=== PATIENT | male | born 1955 | race Native Hawaiian/Other Pacific Islander ===

== ENCOUNTER 2016-11-02 20:19 | Emergency (ER) | payer BC, OTHER ==
[~2016-11-02] VITALS: Ht 167.6 cm; Wt 77.1 kg
[~2016-11-02 20:19] MED LIST: ALLO100T56 PO; AMLO2.5T PO; ASPI81TA31 PO; ATOR20TA PO; GABA-534 PO; HYDR-4076 PO; METO25TA6 PO; OMEG500C3 PO
[2016-11-02] MEDS ORDERED: HYDROCODONE/APAP 5-325MG TABLET PO ONE (21:15)
[2016-11-02] MEDS ORDERED: predniSONE 20 MG TABLET PO ONE (21:15)
[2016-11-02 21:25] VITALS: BP 135/89
--- NOTE | 2016-11-02 21:26 | NUR ---
Patient discharged to home in stable conditon. Written and verbal after care instructions given. Patient verbalizes understanding of instructions.
[2016-11-02] MEDS ORDERED: HYDROCODONE/APAP 5-325MG TABLET ONE (21:31)
[2016-11-02] MEDS ORDERED: predniSONE 20 MG TABLET ONE (21:32)
== END 2016-11-02 21:26 | disposition home or self-care (01) ==
LOC: ER 20:20
DX: M10.9 Gout, unspecified (principal); I10 Essential (primary) hypertension; E78.5 Hyperlipidemia, unspecified; Z95.1 Presence of aortocoronary bypass graft; Z79.82 Long term (current) use of aspirin
CPT/HCPCS: A4663; J7512

== ENCOUNTER 2017-01-02 17:14 | Emergency (ER) | payer BC, OTHER ==
[~2017-01-02] VITALS: Ht 167.6 cm; Wt 77.1 kg
--- NOTE | 2017-01-02 19:59 | NUR ---
PHARMACY NOTE ; DR HARRY VERBALLY STATED TO CHANGE THE CONCENTRATION OF THE LIDOCAINE FROM 1% TO 2%.
--- NOTE | 2017-01-02 20:12 | NUR ---
MSE COMPLETED, PT D/C'D HOME, ACI/RX X2 GIVWEN. PT STAED FELT LESS PAIN TO KNEE. PT AMBULATED W/O DIFF/TOOK ALL BELONGINGS.
[2017-01-02 20:14] VITALS: BP 112/82
== END 2017-01-02 20:14 | disposition home or self-care (01) ==
LOC: ER 17:18
DX: M10.9 Gout, unspecified (principal); M25.561 Pain in right knee; I10 Essential (primary) hypertension; Z95.1 Presence of aortocoronary bypass graft; Z79.82 Long term (current) use of aspirin; E78.5 Hyperlipidemia, unspecified
CPT/HCPCS: 20610; 73564; 99284; A4663; J3490; J7512

== ENCOUNTER 2017-03-17 17:41 | Inpatient (IN) | payer BC, OTHER ==
[~2017-03-17] VITALS: Ht 167.6 cm; Wt 79.4 kg
[~2017-03-17 17:41] MED LIST changes: -GABA-534 PO
[2017-03-17] MEDS ORDERED: hydrALAZINE HCL 20 MG/1 ML VIAL IV ONE ×2 (18:15→20:45)
[2017-03-17] MEDS ORDERED: hydrALAZINE HCL 20 MG/1 ML VIAL ONE ×2 (18:25→20:55)
[2017-03-17 19:16] LABS: BASOPHILS # (AUTO) 0.1 K/uL (0.0-8.0); BASOPHILS % (AUTO) 0.8 % (0.0-2.0); EOSINOPHILS # (AUTO) 0.5 K/uL (0.0-0.7); EOSINOPHILS % (AUTO) 6.2 % (0.0-7.0); HEMATOCRIT 50.5 % (40-50); HEMOGLOBIN 16.7 G/DL (14.0-18.0); LYMPHOCYTES # (AUTO) 2.1 K/UL (0.8-4.8); LYMPHOCYTES % (AUTO) 24.9 % (20.5-51.5); MEAN CORPUSCULAR HEMOGLOBIN 28.9 UUG (27.0-31.0); MEAN CORPUSCULAR HGB CONC 33 g/dL (32.0-37.0); MEAN CORPUSCULAR VOLUME 87.3 FL (82.0-92.0); MONOCYTES # (AUTO) 0.6 K/UL (0.1-1.30); MONOCYTES % (AUTO) 6.6 % (0.0-11.0); NEUTROPHILS # (AUTO) 5.2 K/UL (1.8-8.9); NEUTROPHILS % (AUTO) 61.5 % (38.5-71.5); PLATELET COUNT (AUTO) 216 K/UL (150-450); RED BLOOD CELL COUNT(AUTO) 5.79 MIL/UL (4.7-6.1); WHITE BLOOD COUNT (AUTO) 8.4 K/UL (4.0-11.2)
[2017-03-17 19:24] LABS: CREATININE 1.4 mg/dL (0.6-1.3); POTASSIUM 3.7 mmol/L (3.5-5.1)
[2017-03-17 19:31] LABS: BILIRUBIN,TOTAL 0.7 mg/dL (0.2-1.0); TOTAL PROTEIN, SERUM 7.3 g/dL (6.4-8.2)
[2017-03-17 19:36] LABS: *BILIRUBIN,URIN NEGATIVE (NEGATIVE); *BLOOD, URINE Trace-intact (NEGATIVE); *CLARITY,URINE CLEAR (CLEAR); *COLOR,URINE YELLOW (YELLOW); *KETONES,URINE NEGATIVE (NEGATIVE); *PROTEIN,URINE 2+ (NEGATIVE); *UROBILINOGEN,URINE 0.2 E.U./dl (NORMAL); LEUKOCYTE ESTERASE ,URINE NEGATIVE (NEGATIVE); NITRITE, URINE NEGATIVE (NEGATIVE); PH,URINE 6.5 (5.0-8.0); UGLUCOSE NEGATIVE (NEGATIVE)
[2017-03-17 19:41] LABS: BACTERIA,URINE NONE SEEN /HPF (NONE SEEN); RBC,URINE 0-3 /HPF (0-3); SQUAMOUS EPITHELIAL CELL,UR NONE SEEN /HPF (NONE SEEN); WBC,URINE 0-3 /HPF (0-3)
[2017-03-17] MEDS ORDERED: LABETALOL HCL 100 MG/20 ML VIAL IV ONE (21:18)
[2017-03-17] MEDS ORDERED: LABETALOL HCL 100 MG/20 ML VIAL ONE (21:39)
[2017-03-17] MEDS ORDERED: IV NS 1000 ML 1,000 ML IV PRN (22:09)
--- NOTE | 2017-03-17 22:12 | NUR ---
Pt. admitted to TELE, under care of Dr. Sage Belongs List completed
[2017-03-17] MEDS ORDERED: hydrALAZINE HCL 25 MG TABLET PO SCH (22:15)
[2017-03-17] MEDS ORDERED: HYDROCODONE/APAP 5-325MG TABLET PO PRN (22:15)
[2017-03-17] MEDS ORDERED: METOPROLOL TARTRATE 25 MG TABLET PO SCH (22:15)
[2017-03-17] MEDS ORDERED: Z GUARD REMEDY PASTE 57 GM TUBE TOP PRN (22:15)
[2017-03-17] MEDS ORDERED: ACETAMINOPHEN 325 MG TABLET PO PRN (22:15)
[2017-03-17] MEDS ORDERED: ZOLPIDEM 5 MG TABLET PO PRN (22:15)
[2017-03-17] MEDS ORDERED: MAGNESIUM HYDROXIDE 30 ML LIQUID UDC PO PRN (22:15)
[2017-03-17] MEDS ORDERED: CLONIDINE HCL 0.1 MG TABLET PO PRN (22:15)
[2017-03-17] MEDS ORDERED: ONDANSETRON 4 MG/2 ML VIAL IV PRN (22:15)
--- NOTE | 2017-03-17 22:20 | NUR ---
NSG: PT RECEIVED A/O X 4, FR ER VIA IWTRNEY WITH DX OF HYPERTENSION. V/S STABLE, BP 158/92. AMBULATORY. TELE, SR. DENIES CP, SOB, OR ANY DISCOMFORT. CONT TO MONITOR.
[2017-03-17 22:39] VITALS: BP 158/92
--- NOTE | 2017-03-17 22:48 | NUR ---
nsg: hydralazine po not, received hydralazine iv at 2042
[2017-03-17] MEDS ORDERED: METOPROLOL TARTRATE 25 MG TABLET ONE (23:08)
[2017-03-18] MEDS ORDERED: ZOLPIDEM 5 MG TABLET ONE (00:15)
[2017-03-18 00:18] VITALS: BP 143/86
[2017-03-18 04:26] LABS: BASOPHILS # (AUTO) 0.1 K/uL (0.0-8.0); BASOPHILS % (AUTO) 0.9 % (0.0-2.0); EOSINOPHILS # (AUTO) 0.4 K/uL (0.0-0.7); EOSINOPHILS % (AUTO) 5.1 % (0.0-7.0); HEMATOCRIT 48.8 % (40-50); HEMOGLOBIN 16.2 G/DL (14.0-18.0); LYMPHOCYTES # (AUTO) 1.9 K/UL (0.8-4.8); LYMPHOCYTES % (AUTO) 24.3 % (20.5-51.5); MEAN CORPUSCULAR HEMOGLOBIN 29.2 UUG (27.0-31.0); MEAN CORPUSCULAR HGB CONC 33 g/dL (32.0-37.0); MEAN CORPUSCULAR VOLUME 87.7 FL (82.0-92.0); MONOCYTES # (AUTO) 0.6 K/UL (0.1-1.30); MONOCYTES % (AUTO) 7.9 % (0.0-11.0); NEUTROPHILS % (AUTO) 61.8 % (38.5-71.5); PLATELET COUNT (AUTO) 225 K/UL (150-450); RED BLOOD CELL COUNT(AUTO) 5.57 MIL/UL (4.7-6.1)
[2017-03-18 04:39] LABS: CREATININE 1.3 mg/dL (0.6-1.3); MAGNESIUM 2.1 mg/dL (1.8-2.4); PHOSPHOROUS 3.8 mg/dL (2.5-4.9); POTASSIUM 3.4 mmol/L (3.5-5.1)
[2017-03-18 04:47] VITALS: BP 115/69
--- NOTE | 2017-03-18 06:00 | NUR ---
NSG: NO CHANGE IN CONDITION. V/S STABLE. TELE, SR WITH OCCASIONAL PVC'S. ON CONT IVF. CONT WITH TREATMENT PLAN.
--- NOTE | 2017-03-18 07:30 | NUR ---
SR ON MONITOR, DENIES SOB OR CHEST PAIN, SBP UNDER CONTROL
[2017-03-18] MEDS ORDERED: OMEGA-3 FATTY ACIDS/FISH OIL CAPSULE PO SCH (09:00)
[2017-03-18] MEDS ORDERED: METOPROLOL TARTRATE 25 MG TABLET PO SCH ×2 (09:00)
[2017-03-18] MEDS ORDERED: ALLOPURINOL 100 MG TABLET PO SCH (09:00)
[2017-03-18] MEDS ORDERED: ASPIRIN 81 MG TAB.CHEW PO SCH (09:00)
[2017-03-18] MEDS ORDERED: hydrALAZINE HCL 25 MG TABLET PO SCH ×2 (09:00)
[2017-03-18] MEDS ORDERED: Medication Not On Formulary EA (Omega-3 Fatty Acids (Fish Oil) 500 MG) PO SCH (09:00)
[2017-03-18] MEDS ORDERED: AMLODIPINE 2.5 MG TABLET PO SCH (09:00)
--- NOTE | 2017-03-18 09:30 | NUR ---
SEEN BY DR ZHAO WITH DC ORDER BRANCH LIBRARY CLERK MADE AWARE
[2017-03-18 11:06] VITALS: BP 101/67
--- NOTE | 2017-03-18 11:23 | NUR ---
DISCHARGE HOME STABLE WITH PRIVATE CAR. MEDICATION AND FOLLOW-UP INSTRUCTION GIVEN. REFUSED TO SEE PHARMACIST FOR FURTHER INSTRUCTION. PATIENT IN A HURRY TO GO TO AIRPORT
[2017-03-18] MEDS ORDERED: ATORVASTATIN 20 MG TABLET PO SCH (21:00)
== END 2017-03-18 11:24 | disposition home or self-care (01) | DRG 684 ==
LOC: ER 17:41 → TELE 22:00
PROVIDERS: ADMIT Internal Medicine; ATTEND Internal Medicine
DX: N17.0 Acute kidney failure with tubular necrosis (principal); E78.5 Hyperlipidemia, unspecified; I10 Essential (primary) hypertension; I25.10 Atherosclerotic heart disease of native coronary artery without angina pectoris; Z95.1 Presence of aortocoronary bypass graft; M10.9 Gout, unspecified; E86.0 Dehydration
CPT/HCPCS: 36415; 70030-TC; 71010; 83735; 84100; 85025; 85610; 93005; A4663; J0360; J3490; J7030

== ENCOUNTER 2017-08-21 08:06 | Emergency (ER) | payer BC, OTHER ==
[~2017-08-21] VITALS: Ht 167.6 cm; Wt 75.7 kg
--- NOTE | 2017-08-21 08:45 | NUR ---
Pt was seen by .Discharge instruction given to pt.Pt verbalized understanding.
[2017-08-21 08:46] VITALS: BP 144/66
== END 2017-08-21 08:49 | disposition home or self-care (01) ==
LOC: ER 08:06
DX: M10.9 Gout, unspecified (principal); I10 Essential (primary) hypertension; E78.5 Hyperlipidemia, unspecified; I25.10 Atherosclerotic heart disease of native coronary artery without angina pectoris; Z95.1 Presence of aortocoronary bypass graft; Z88.8 Allergy status to other drugs, medicaments and biological substances; Z79.82 Long term (current) use of aspirin; Z79.899 Other long term (current) drug therapy
CPT/HCPCS: A4663

== ENCOUNTER 2017-10-31 08:19 | Emergency (ER) | payer BC, OTHER ==
[~2017-10-31] VITALS: Ht 167.6 cm; Wt 74.8 kg
--- NOTE | 2017-10-31 08:32 | NUR ---
PATIENT IS AAOX4. RESPIRATIONS EVEN AND UNLABORED. NO CARDIOVASCULAR DISTRESS NOTED. DENIES N/V/D/CP/SOB. HERE FOR C/O GOUT FLARE UP TO LLE X 3 DAYS. NOTED WITH LIMITED MOBILITY DUE TO PAIN IN LLE.
--- NOTE | 2017-10-31 08:39 | NUR ---
NATALIE HAWK at bedside for patient evaluation.
[2017-10-31] MEDS ORDERED: predniSONE 20 MG TABLET PO ONE (08:45)
[2017-10-31] MEDS ORDERED: predniSONE 20 MG TABLET ONE (08:48)
--- NOTE | 2017-10-31 08:50 | NUR ---
Patient discharged to home in stable conditon. Written and verbal after care instructions given. Patient verbalizes understanding of instructions. Ambulated from ER with stable gait. All belongings with patient.
[2017-10-31 08:51] VITALS: BP 121/78
== END 2017-10-31 08:52 | disposition home or self-care (01) ==
LOC: ER 08:20
DX: M10.9 Gout, unspecified (principal); M19.072 Primary osteoarthritis, left ankle and foot; I10 Essential (primary) hypertension; E78.5 Hyperlipidemia, unspecified; Z88.8 Allergy status to other drugs, medicaments and biological substances; Z95.1 Presence of aortocoronary bypass graft; Z79.82 Long term (current) use of aspirin; Z79.899 Other long term (current) drug therapy
CPT/HCPCS: A4663; J7512

== ENCOUNTER 2017-11-29 01:34 | Emergency (ER) | payer BC, OTHER ==
[~2017-11-29] VITALS: Ht 170.2 cm; Wt 74.8 kg
--- NOTE | 2017-11-29 01:55 | NUR ---
PATIENT CAME INTO ER C/O LEFT ANKLE PAIN DUE TO GOUT. PATIENT PAIN STARTED 3 DAYS AGO BUT PAIN HAS WORSEN TODAY
[2017-11-29] MEDS ORDERED: INDOMETHACIN 25 MG CAPSULE ONE (01:58)
[2017-11-29] MEDS ORDERED: predniSONE 10 MG TABLET ONE (01:58)
[2017-11-29] MEDS ORDERED: ONDANSETRON ODT 4 MG TAB.RAPDIS ONE (01:58)
[2017-11-29] MEDS ORDERED: predniSONE 50 MG TABLET ONE (01:58)
[2017-11-29] MEDS ORDERED: INDOMETHACIN 25 MG CAPSULE PO ONE (02:00)
[2017-11-29] MEDS ORDERED: predniSONE 20 MG TABLET PO ONE (02:00)
[2017-11-29] MEDS ORDERED: ONDANSETRON ODT 4 MG TAB.RAPDIS SL ONE (02:00)
--- NOTE | 2017-11-29 02:09 | NUR ---
Patient discharged to home in stable conditon WITH FAMILY MEMBER TAKING PATIENT HOME. Written and verbal after care instructions given. Patient verbalizes understanding of instructions. WALKED OUT OF ER WITH NO DISTRESS NOTED
[2017-11-29 02:10] VITALS: BP 135/89
== END 2017-11-29 02:14 | disposition home or self-care (01) ==
LOC: ER 01:35
DX: M10.9 Gout, unspecified (principal); I10 Essential (primary) hypertension; E78.5 Hyperlipidemia, unspecified; Z95.1 Presence of aortocoronary bypass graft; Z79.82 Long term (current) use of aspirin; Z88.8 Allergy status to other drugs, medicaments and biological substances
CPT/HCPCS: A4663; J7512; Q0162

== ENCOUNTER 2018-02-12 20:30 | Emergency (ER) | payer BC, OTHER ==
[~2018-02-12] VITALS: Ht 170.2 cm; Wt 74.8 kg
[~2018-02-12 20:30] MED LIST changes: -AMLO2.5T PO; +AMLO2.5T3 PO
--- NOTE | 2018-02-12 20:56 | NUR ---
PT A/OX4, RESPONSIVE TO VERBAL AND TACTILE STIMULI. PT C/O L ANKLE/FOOT PAIN THAT STARTED ABOUT 2 DAYS AGO, PROVOKED UPON MOVEMENT, SHARP IN QUALITY, DOES NOT RADIATE, 9/10, CONSTANT. PT ATTRIBUTES IT TO HIS DX OF GOUT. PT DENIES C/P, SOB, N/V/D, DIZZINESS, HEADACHE. ER MD AT BEDSIDE.
[2018-02-12] MEDS ORDERED: HYDROCODONE/APAP 5-325MG TABLET PO ONE (21:00)
[2018-02-12] MEDS ORDERED: predniSONE 20 MG TABLET PO ONE (21:00)
[2018-02-12] MEDS ORDERED: HYDROCODONE/APAP 5-325MG TABLET ONE (21:06)
[2018-02-12] MEDS ORDERED: predniSONE 20 MG TABLET ONE (21:07)
--- NOTE | 2018-02-12 21:15 | NUR ---
Patient discharged to home in stable conditon. Written and verbal after care instructions given. Patient verbalizes understanding of instructions. PT D/C W/ PRESCRIPTIONS. ALL BELONGINGS W/ PT. PT SELF-AMBULATED WITHOUT DIFFICULTY.
[2018-02-12 21:16] VITALS: BP 125/72
== END 2018-02-12 21:18 | disposition home or self-care (01) ==
LOC: ER 20:33
DX: M10.9 Gout, unspecified (principal); I10 Essential (primary) hypertension; Z95.1 Presence of aortocoronary bypass graft; E78.5 Hyperlipidemia, unspecified; Z88.8 Allergy status to other drugs, medicaments and biological substances
CPT/HCPCS: 99283; J7512; A4663

== ENCOUNTER 2018-04-10 02:43 | Emergency (ER) | payer BC, OTHER ==
[~2018-04-10] VITALS: Ht 170.2 cm; Wt 78.0 kg
[2018-04-10] MEDS ORDERED: predniSONE 10 MG TABLET ONE (03:15)
[2018-04-10] MEDS ORDERED: predniSONE 20 MG TABLET PO ONE (03:15)
[2018-04-10] MEDS ORDERED: HYDROCODONE/APAP 10-325 MG TABLET ONE (03:15)
[2018-04-10] MEDS ORDERED: HYDROCODONE/APAP 10-325 MG TABLET PO ONE (03:15)
[2018-04-10] MEDS ORDERED: predniSONE 50 MG TABLET ONE (03:16)
--- NOTE | 2018-04-10 03:20 | NUR ---
Patient discharged to home in stable conditon. Written and verbal after care instructions given. Patient verbalizes understanding of instructions.
== END 2018-04-10 03:21 | disposition home or self-care (01) ==
LOC: ER 02:47
DX: M17.12 Unilateral primary osteoarthritis, left knee (principal); M10.9 Gout, unspecified; E78.5 Hyperlipidemia, unspecified; Z87.891 Personal history of nicotine dependence; Z88.8 Allergy status to other drugs, medicaments and biological substances; Z79.82 Long term (current) use of aspirin; Z79.899 Other long term (current) drug therapy
CPT/HCPCS: 99283; J7512 ×2; A4663

== ENCOUNTER 2018-04-12 02:12 | Inpatient (IN) | payer BC, OTHER ==
[~2018-04-12] VITALS: Ht 167.6 cm; Wt 78.0 kg
[2018-04-12] MEDS ORDERED: NITROGLYCERIN 0.4 MG/TAB BOTTLE SL ONE ×2 (02:24→02:30)
[2018-04-12] MEDS ORDERED: ASPIRIN 325 MG TABLET ONE (02:24)
--- NOTE | 2018-04-12 02:25 | NUR ---
Gave 1st dose of nitro sublingual at 0225. CP is 7/10 chest pressure
[2018-04-12] MEDS ORDERED: ASPIRIN 325 MG TABLET PO ONE (02:30)
--- NOTE | 2018-04-12 02:30 | NUR ---
Gave 2nd dose of Nitro sublingual. Pain is 3/10 pressure
[2018-04-12] MEDS: NITROGLYCERIN OINT 1 GM PACKET TP ONE ×2 (02:35→02:45)
--- NOTE | 2018-04-12 02:35 | NUR ---
After 2nd dose of nitro patient states chest pain/pressure is zero out of 10
[2018-04-12] MEDS ORDERED: NITROGLYCERIN OINT 1 GM PACKET TP ONE (02:41)
[2018-04-12 02:48] LABS: BASOPHILS # (AUTO) 0.1 K/uL (0.0-8.0); BASOPHILS % (AUTO) 0.6 % (0.0-2.0); EOSINOPHILS % (AUTO) 0.3 % (0.0-7.0); HEMATOCRIT 43.3 % (36.7-47.1); HEMOGLOBIN 15.1 g/dL (12.5-16.3); LYMPHOCYTES % (AUTO) 18.8 % (20.5-51.5); MEAN CORPUSCULAR HEMOGLOBIN 30.1 uug (23.8-33.4); MEAN CORPUSCULAR HGB CONC 35 g/dL (32.5-36.3); MEAN CORPUSCULAR VOLUME 86.7 fL (73.0-96.2); MONOCYTES # (AUTO) 0.7 K/uL (2.0-10.0); MONOCYTES % (AUTO) 6.5 % (0.0-11.0); NEUTROPHILS # (AUTO) 7.8 K/uL (1.8-8.9); NEUTROPHILS % (AUTO) 73.8 % (38.5-71.5); PLATELET COUNT (AUTO) 262 K/uL (152-348); WHITE BLOOD COUNT (AUTO) 10.6 K/uL (3.6-10.2)
--- NOTE | 2018-04-12 02:48 | NUR ---
Pt. ambulated into ED w/ c/o 10/27 CP that began @ 11pm last night, denies SOB/N/V/F/C, IV started, placed on O2,
[2018-04-12 03:00] LABS: CREATININE 1.3 mg/dL (0.6-1.3); POTASSIUM 3.5 mmol/L (3.5-5.1)
[2018-04-12 03:13] LABS: BILIRUBIN,DIRECT 0.1 mg/dL (0.0-0.2); BILIRUBIN,TOTAL 0.6 mg/dL (0.2-1.0); TOTAL PROTEIN, SERUM 7.6 g/dL (6.4-8.2)
[2018-04-12] MEDS ORDERED: IV NS 1000 ML 1,000 ML IV PRN (03:24)
[2018-04-12] MEDS ORDERED: ONDANSETRON 4 MG/2 ML VIAL IV PRN (03:30)
[2018-04-12] MEDS ORDERED: ACETAMINOPHEN 325 MG TABLET PO PRN (03:30)
[2018-04-12] MEDS ORDERED: HYDROCODONE/APAP 5-325MG TABLET PO PRN (03:30)
[2018-04-12] MEDS ORDERED: MAGNESIUM HYDROXIDE 30 ML LIQUID UDC PO PRN (03:30)
[2018-04-12] MEDS ORDERED: Z GUARD REMEDY PASTE 57 GM TUBE TOP PRN (03:30)
[2018-04-12] MEDS ORDERED: LISI10TA5 PO (03:35)
--- NOTE | 2018-04-12 04:11 | NUR ---
patient in bed, no c/o chest pain at this time. all patient needs attended and met. at bedside. Vital sign observation ongoing, on manager cardiac cath at this time. Will continue to monitor. VSS. Fall precautions in place.
--- NOTE | 2018-04-12 06:02 | NUR ---
Spoke to Mechanical Research Engineer, Kendell Elena. This patient is to remain in ER until 0700 when adequate inpatient staffing will be available to recieve the patient report/accomodate inpatient admission. Plan of care reviewed with patient. Patient remains in bed with no acute distress. VSS. Remains on hosiery bagger at this time. Will continue to monitor.
--- NOTE | 2018-04-12 07:20 | NUR ---
ADMITTED FROM HOME VIA ER WITH A 63 YO MALE WITH ADM DX OF CHEST PAIN, AWAKE ALERT AND ORIENTED X3 DENIES CHEST PAIN UPON ARRIVAL IN ROOM, SB ON MONITOR 52-54. INITIAL ASSESSMENT INITIATED. CLOSELY MONITORED
[2018-04-12 07:48] VITALS: BP 107/64
[2018-04-12 07:53] VITALS: BP 116/67
--- NOTE | 2018-04-12 11:00 | NUR ---
SEEN BY DR JOINER PATIENT WILL STAY AND WILL BE OBSERVED TILL AM. DENIES CHEST PRESSURE OR PAIN. REMAINS SB ON MONITOR
[2018-04-12 11:15] VITALS: BP 101/60
[2018-04-12] MEDS ORDERED: METOPROLOL TARTRATE 25 MG TABLET PO SCH (11:15)
[2018-04-12] MEDS ORDERED: POTASSIUM CHLORIDE 20 MEQ POWDER PACKET PO ONE (11:15)
[2018-04-12] MEDS ORDERED: ASPIRIN 81 MG TAB.CHEW PO SCH (11:15)
--- NOTE | 2018-04-12 15:30 | NUR ---
BACK FROM [facility] VIA AMBULANCE POST CTA OF HEART. AWAITING RESULTS
[2018-04-12 16:00] VITALS: BP 132/66
[2018-04-12] MEDS ORDERED: ISOSORBIDE MONONITRATE 30 MG TAB.SR.24H PO SCH (17:30)
[2018-04-12 18:08] VITALS: BP 142/79
--- NOTE | 2018-04-12 18:18 | NUR ---
DISCHARGED HOME STABLE WITH MEDS AND FOLLOW-UP INSTRUCTION. TO SEE PCP AND LEVER TENDER IN 1 WEEK
== END 2018-04-12 18:18 | disposition home or self-care (01) | DRG 303 ==
LOC: ER 02:14 → TELE 07:11
PROVIDERS: ADMIT Internal Medicine
PROC: B22 Imaging, Heart, Computerized Tomography (CT Scan) (ICD-10-PCS; principal; 2018-04-12)
DX: I25.708 Atherosclerosis of coronary artery bypass graft(s), unspecified, with other forms of angina pectoris (principal); I13.10 Hypertensive heart and chronic kidney disease without heart failure, with stage 1 through stage 4 chronic kidney disease, or unspecified chronic kidney disease; I25.82 Chronic total occlusion of coronary artery; Z95.1 Presence of aortocoronary bypass graft; N18.2 Chronic kidney disease, stage 2 (mild); Z87.891 Personal history of nicotine dependence; Z79.899 Other long term (current) drug therapy; Z79.82 Long term (current) use of aspirin; E78.5 Hyperlipidemia, unspecified; M10.9 Gout, unspecified; I25.10 Atherosclerotic heart disease of native coronary artery without angina pectoris
CPT/HCPCS: 36415; 70030-TC; 71045; 85025; 85730; 93005; 93307; G0378; J7030

== ENCOUNTER 2018-07-08 19:07 | Emergency (ER) | payer BC, OTHER ==
[~2018-07-08] VITALS: Ht 167.6 cm; Wt 78.0 kg
[~2018-07-08 19:07] MED LIST changes: -AMLO2.5T3 PO; +AMLO2.5T4 PO; +LISI10TA5 PO; -OMEG500C3 PO
[2018-07-08] MEDS ORDERED: TAMSULOSIN HCL 0.4 MG CAPSULE (19:22)
--- NOTE | 2018-07-08 19:30 | NUR ---
Pt. ambulated into ED w/ c/o L knee pain 12/28 since last night, has difficulty walking, A/Ox4
[2018-07-08] MEDS ORDERED: INDOMETHACIN 25 MG CAPSULE ONE (19:44)
[2018-07-08] MEDS ORDERED: predniSONE 20 MG TABLET ONE (19:44)
[2018-07-08] MEDS ORDERED: predniSONE 20 MG TABLET PO ONE (19:45)
[2018-07-08] MEDS ORDERED: INDOMETHACIN 25 MG CAPSULE PO ONE (19:45)
--- NOTE | 2018-07-08 19:49 | NUR ---
Patient discharged to home in stable conditon. Written and verbal after care instructions given. Patient verbalizes understanding of instructions. Pt. d/c w/ prescriptions per MD order, all belongings w/ pt., ID band removed, ambulated off unit w/ steady gait, NAD
== END 2018-07-08 20:16 | disposition home or self-care (01) ==
LOC: ER 19:12
DX: M10.9 Gout, unspecified (principal); E78.5 Hyperlipidemia, unspecified; Z87.891 Personal history of nicotine dependence; Z88.8 Allergy status to other drugs, medicaments and biological substances; Z95.1 Presence of aortocoronary bypass graft; Z79.82 Long term (current) use of aspirin; Z79.899 Other long term (current) drug therapy
CPT/HCPCS: 99283; J7512; A4663

== ENCOUNTER 2018-08-26 02:13 | Emergency (ER) | payer BC, OTHER ==
[~2018-08-26] VITALS: Ht 170.2 cm; Wt 77.1 kg
[~2018-08-26 02:13] MED LIST changes: +TAMSULOSIN HCL 0.4 MG CAPSULE
[2018-08-26] MEDS ORDERED: predniSONE 20 MG TABLET PO ONE (03:00)
[2018-08-26] MEDS ORDERED: predniSONE 20 MG TABLET ONE (03:05)
--- NOTE | 2018-08-26 03:05 | NUR ---
Patient discharged to home in stable conditon. Written and verbal after care instructions given. Patient verbalizes understanding of instructions. Walked out of ER with no distress noted
[2018-08-26 03:06] VITALS: BP 128/60
== END 2018-08-26 03:08 | disposition home or self-care (01) ==
LOC: ER 02:37
DX: M10.9 Gout, unspecified (principal); I10 Essential (primary) hypertension; I25.10 Atherosclerotic heart disease of native coronary artery without angina pectoris; E78.5 Hyperlipidemia, unspecified; Z95.1 Presence of aortocoronary bypass graft; Z88.8 Allergy status to other drugs, medicaments and biological substances; Z87.891 Personal history of nicotine dependence; Z79.82 Long term (current) use of aspirin; Z79.899 Other long term (current) drug therapy
CPT/HCPCS: 99283; J7512; A4663

== ENCOUNTER 2019-01-19 22:57 | Emergency (ER) | payer BC, OTHER ==
[~2019-01-19] VITALS: Ht 167.6 cm; Wt 77.1 kg
[~2019-01-19 22:57] MED LIST changes: -HYDR-4076 PO; +HYDR-894 PO
[2019-01-19] MEDS ORDERED: predniSONE 10 MG TABLET ONE (23:24)
[2019-01-19] MEDS ORDERED: HYDROCODONE/APAP 10-325 MG TABLET ONE (23:24)
[2019-01-19] MEDS ORDERED: predniSONE 50 MG TABLET ONE (23:24)
[2019-01-19 23:30] VITALS: BP 112/75
[2019-01-19] MEDS ORDERED: HYDROCODONE/APAP 10-325 MG TABLET PO ONE (23:30)
[2019-01-19] MEDS ORDERED: predniSONE 20 MG TABLET PO ONE (23:30)
--- NOTE | 2019-01-19 23:30 | NUR ---
Patient discharged to home in stable conditon WITH DAUGHTER TAKING PATIENT HOME. Written and verbal after care instructions given. Patient verbalizes understanding of instructions. WALKED OUT OF ER WITH NO DISTRESS NOTED
== END 2019-01-19 23:31 | disposition home or self-care (01) ==
LOC: ER 23:07
DX: M10.9 Gout, unspecified (principal); E78.5 Hyperlipidemia, unspecified; Z95.1 Presence of aortocoronary bypass graft; Z87.891 Personal history of nicotine dependence; Z88.8 Allergy status to other drugs, medicaments and biological substances; Z79.82 Long term (current) use of aspirin; Z79.899 Other long term (current) drug therapy
CPT/HCPCS: 99283; J7512 ×2; A4663

== ENCOUNTER 2019-02-20 23:50 | Emergency (ER) | payer BC, OTHER ==
[~2019-02-20] VITALS: Ht 167.6 cm; Wt 77.1 kg
--- NOTE | 2019-02-21 | NUR ---
MD AT BEDSIDE FOR HX AND PHYSICAL
[2019-02-21] MEDS ORDERED: HYDROCODONE/APAP 5-325MG TABLET ONE (00:05)
[2019-02-21] MEDS ORDERED: predniSONE 20 MG TABLET ONE (00:05)
--- NOTE | 2019-02-21 00:14 | NUR ---
PT ABLE TO TOLERATE PO MEDS ORDERED PN AT 10/10 TO R BG TOE , PT IS SMILING AND CALM
[2019-02-21] MEDS ORDERED: predniSONE 20 MG TABLET PO ONE (00:15)
[2019-02-21] MEDS ORDERED: HYDROCODONE/APAP 5-325MG TABLET PO ONE (00:15)
--- NOTE | 2019-02-21 01:14 | NUR ---
Patient discharged to home in stable conditon. Written and verbal after care instructions given. Patient verbalizes understanding of instructions. AMBULATORY W/ STABLE ALL BELONGINGS W/ PT VERBALIZED UNDERSTANDING HE WILL NOT DRIVE
[2019-02-21 01:29] VITALS: BP 125/87
== END 2019-02-21 01:14 | disposition home or self-care (01) ==
LOC: ER 23:51
DX: M10.9 Gout, unspecified (principal); Z95.1 Presence of aortocoronary bypass graft; E78.5 Hyperlipidemia, unspecified; Z87.891 Personal history of nicotine dependence; Z88.8 Allergy status to other drugs, medicaments and biological substances; Z79.82 Long term (current) use of aspirin; Z79.899 Other long term (current) drug therapy
CPT/HCPCS: 99283; J7512; A4663

== ENCOUNTER 2019-05-24 14:18 | Emergency (ER) | payer BC, OTHER ==
[~2019-05-24] VITALS: Ht 167.6 cm; Wt 78.0 kg
[2019-05-24] MEDS ORDERED: ACETAMINOPHEN ES 500 MG TABLET PO ONE (14:30)
[2019-05-24] MEDS ORDERED: ACETAMINOPHEN ES 500 MG TABLET ONE (14:35)
--- NOTE | 2019-05-24 14:40 | NUR ---
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 He presented at the ER with steady gait and c/o fever for the past 2 days with unproductive cough.Pt states hes feeling weakness and pain in his joints.
--- NOTE | 2019-05-24 14:45 | NUR ---
NATALIE HAWK at bedside.
--- NOTE | 2019-05-24 15:22 | NUR ---
rechecked temperature 100.4 , removed his blanket.Pt laying comfortably.
--- NOTE | 2019-05-24 15:25 | NUR ---
Patient discharged to home in stable conditon with steady gait. Patients fever had reduced to 98.4. Written and verbal after care instructions given.Patient verbalizes understanding of instructions.
[2019-05-24 15:49] VITALS: BP 130/80
== END 2019-05-24 15:25 | disposition home or self-care (01) ==
LOC: ER 14:18
DX: J10.1 Influenza due to other identified influenza virus with other respiratory manifestations (principal); E78.5 Hyperlipidemia, unspecified; M10.9 Gout, unspecified; Z88.5 Allergy status to narcotic agent; Z95.1 Presence of aortocoronary bypass graft; Z87.891 Personal history of nicotine dependence; Z79.82 Long term (current) use of aspirin; Z79.899 Other long term (current) drug therapy
CPT/HCPCS: 71045; 87400; A4663; A9150

== ENCOUNTER 2019-06-02 14:21 | Emergency (ER) | payer BC, OTHER ==
[~2019-06-02] VITALS: Ht 170.2 cm; Wt 79.4 kg
[2019-06-02] MEDS ORDERED: DOCUSATE SODIUM 100 MG CAPSULE PO ONE ×2 (14:45→14:47)
[2019-06-02] MEDS ORDERED: predniSONE 20 MG TABLET PO ONE (14:45)
[2019-06-02] MEDS ORDERED: HYDROCODONE/APAP 5-325MG TABLET PO ONE (14:45)
--- NOTE | 2019-06-02 14:47 | NUR ---
Patient discharged to home in stable conditon. Written and verbal after care instructions given. Patient verbalizes understanding of instructions.PT WALKS I NSTEADY GAIT. PT WITH DAUGHTER, PT NOT DRIVING
== END 2019-06-02 14:49 | disposition home or self-care (01) ==
LOC: ER 14:21
DX: M10.9 Gout, unspecified (principal); E78.5 Hyperlipidemia, unspecified; Z87.891 Personal history of nicotine dependence; Z95.1 Presence of aortocoronary bypass graft; Z88.8 Allergy status to other drugs, medicaments and biological substances; Z79.82 Long term (current) use of aspirin; Z79.899 Other long term (current) drug therapy
CPT/HCPCS: A4663; J7512